=== PATIENT | male | born 1950 | race Caucasian/White ===

== ENCOUNTER 2023-03-26 16:10 | Observation (INO) | payer MEDICARE, BC ==
[2023-03-26 17:41] VITALS: BMI 27.8
[2023-03-26] MEDS ORDERED: Acetaminophen 325 MG TAB PO PRN (17:41)
[2023-03-26] MEDS ORDERED: Calcium Carbonate 500 MG ChewTAB PO PRN (17:41)
[2023-03-26] MEDS ORDERED: Senokot S 8.6-50 MG TAB PO PRN (17:41)
[2023-03-26] MEDS ORDERED: Ondansetron ODT 4 MG TAB PO PRN (17:41)
[2023-03-26] MEDS: Sodium Chloride 0.9% 1,000 ML IV SCH (18:18)
[2023-03-26 20:01] LABS: Troponin I 0.018 ng/mL (< 0.028)
[2023-03-26 23:41] LABS: Troponin I Less than 0.010 ng/mL (< 0.028)
[2023-03-27] MEDS: Sodium Chloride 0.9% 1,000 ML IV SCH (04:34)
[2023-03-27 04:57] LABS: #Eosinphils 0.2 thou/uL (0.0-0.7); #Monocytes 0.4 thou/uL (0.11-0.59); #Neutrophils 1.9 thou/uL (1.40-6.50); %Basophils 0.8 % (0.0-1.0); %Eosinophils 5.2 % (0.0-10.0); %Lymphocytes 35.3 % (21.0-51.0); %Monocytes 10.4 % (0.0-10.0); Hemoglobin 13.5 g/dL (14.0-18.0); Mean Corpuscular HGB CONC 34.6 g/dL (32.0-36.0); Mean Corpuscular Hemoglobin 33.9 pg (27.0-31.0); Mean Platelet Volume 8.8 fL (7.4-10.4); Platelet Count 220 10x3/uL (130-400); RBC Distribution Width 12.5 % (11.5-14.5); Red Blood Cell (RBC) Count 3.98 mill/uL (4.70-6.10); White Blood Cell (WBC) Count 3.9 10x3/uL (4.8-10.8)
[2023-03-27 05:25] LABS: ALT (SGPT) 20 U/L (8-55); AST (SGOT) 22 U/L (5-34); Albumin 3.8 g/dL (3.4-4.8); Alkaline Phosphatase 46 U/L (40-110); Anion Gap 13 mmol/L (10-20); BUN (Urea Nitrogen) 15 mg/dL (8.4-25.7); Bilirubin, Total 0.4 mg/dL (0.2-1.2); Calc. Creatinine Clearance 68 mL/min (70-130); Calcium 8.6 mg/dL (7.8-10.44); Carbon Dioxide 23 mmol/L (23-31); Cardiac Risk 3.5 (Less than 4.5); Chloride 107 mmol/L (98-107); Cholesterol 198 mg/dl (< 200 Desired); Estimated GFR 80; Glucose 89 mg/dL (83-110); HDL Cholesterol 57 mg/dL (>60 Neg Risk); LDL Cholesterol, Calculated 126 mg/dL; Magnesium 2.3 mg/dL (1.6-2.6); Potassium 3.8 mmol/L (3.5-5.1); Protein, Total 5.8 g/dL (5.8-8.1); Sodium 139 mmol/L (136-145); Triglycerides 74 mg/dL (Less than 150)
[2023-03-27] MEDS ORDERED: Aspirin 81 mg Enteric Coated Tablet PO SCH (09:00)
[2023-03-27 15:05] VITALS: BP 165/86; TEMP 97.6
[2023-03-27] MEDS ORDERED: Atorvastatin Calcium 40 MG TAB PO SCH (21:00)
[2023-03-29] MEDS ORDERED: FLU VACC QS2023(65UP)/MF59C/PF 60 MCG/0.5 ML SYRINGE IM ONE (09:00)
== END 2023-03-27 17:54 | disposition home or self-care (01) ==
LOC: 2SW 17:18
PROVIDERS: ADMIT Internal Medicine; ATTEND Internal Medicine
DX: R07.89 Other chest pain (principal); R00.2 Palpitations; I10 Essential (primary) hypertension; I95.9 Hypotension, unspecified; E78.5 Hyperlipidemia, unspecified; F10.90 Alcohol use, unspecified, uncomplicated; Z79.899 Other long term (current) drug therapy
CPT/HCPCS: 78452; 80061; 83036; 83735; 84484; 93017; 93880; A9500; 36415; 80053; 84443; 85025; 96372; G0378; J1650; J7050